=== PATIENT | male | born 1950 | race Native Hawaiian/Other Pacific Islander ===

== ENCOUNTER 2017-03-27 14:30 | Outpatient (CLI) | payer OTHER ==
[~2017-03-27 14:30] MED LIST: CRESTOR20 MG PO; CYCL10TA35 PO; DIVALPROEX250 MG PO; NEURONTIN 100M100 MG PO; TRAZ50TA36 PO; ZOCOR80 MG PO
== END 2017-03-27 14:32 | disposition short-term general hospital (02) ==
LOC: AMB 14:30
DX: R40.20 Unspecified coma (principal); W13.2XXA Fall from, out of or through roof, initial encounter; Y92.89 Other specified places as the place of occurrence of the external cause
CPT/HCPCS: A0427